=== PATIENT | male | born 1980 | race Caucasian/White ===

== ENCOUNTER 2024-01-10 01:16 | Emergency (ER) | payer BC, SELFPAY ==
[2024-01-10] VITALS (16 sets, daily range): BP systolic 121–176; BP diastolic 60–111; PULSE 69–89; RESP 16–20; TEMP 36.6; O2SAT 87–98; BMI 36.5
--- NOTE | 2024-01-10 01:35 | CTR_ITS ---
PROCEDURE INFORMATION: Exam: CT Abdomen And Pelvis Without Contrast Exam date and time: 01/10/2024 1:46 AM Age: 43 years old Clinical indication: Abdominal pain; Flank; Left; Prior surgery; Surgery date: 6+ months; Surgery type: Appy; Additional info: Kidney stone left TECHNIQUE: Imaging protocol: Computed tomography of the abdomen and pelvis without contrast. Radiation optimization: All CT scans at this facility use at least one of these dose optimization techniques: automated exposure control; mA and/or kV adjustment per patient size (includes targeted exams where dose is matched to clinical indication); or iterative reconstruction. COMPARISON: No relevant prior studies available. RADIATION DOSE METRICS: Total DLP (mGy-cm): 1336.93 FINDINGS: Lungs: Lung bases are clear as visualized. Diaphragm: There is a small hiatal hernia. Liver: There is diffuse fatty infiltration of the liver. The liver is otherwise normal. Gallbladder and biliary ducts: Normal. No calcified stones. No ductal dilation. Pancreas: Normal. No ductal dilation. Spleen: Normal. No splenomegaly. Adrenal glands: Normal. No mass. Kidneys and ureters: There are nonobstructing renal calculi on the left. There is moderate to severe hydronephrosis on the left secondary to 3 stones within the proximal left ureter the largest measures 12 mm in size. The 2nd largest measures 7 mm in size in the 3rd measures 1-2 mm in size. There is mild perinephric stranding on the left. The right kidney has a normal noncontrast appearance. Stomach and bowel: There are scattered colonic diverticula. No large bowel wall thickening is appreciated. No dilated loops of large or small bowel is appreciated. Appendix: The appendix is surgically absent. Intraperitoneal space: Unremarkable. No free air. No significant fluid collection. Vasculature: Unremarkable. No abdominal aortic aneurysm. Lymph nodes: Unremarkable. No enlarged lymph nodes. Urinary bladder: Unremarkable as visualized. Reproductive: Unremarkable as visualized. Bones/joints: Unremarkable. No acute fracture. Soft tissues: There is a small fat filled periumbilical hernia. CT/CT kidney stone [id number] IMPRESSION: 1. Moderate to severe hydronephrosis on the left secondary to a 3 proximal left ureteral stones. 2. Fatty infiltration of the liver. 3. Diverticulosis.
[2024-01-10] MEDS: ondansetron 2 mg/ML SDV 2 mL 4 MG IVP (01:42)
[2024-01-10 01:43] LABS: Charge for UA Resulting for Rev
[2024-01-10] MEDS: ketorolac 30 mg/mL INJ 15 MG IVP (01:43)
[2024-01-10 01:44] LABS: Basophils # 0.1 10^3/uL (0.0-0.1); Basophils % 0.7 %; Eosinophils # 0.4 10^3/uL (0.0-0.8); Eosinophils % 2.8 %; Hematocrit 40.3 % (37-53); Lymphocytes # 2.9 10^3/uL (0.8-4.8); Lymphocytes % 21.6 %; Mean Corpuscular HGB Conc 33.3 g/dL (30-55); Mean Corpuscular Hemoglobin 30.4 pg (27-33); Mean Corpuscular Volume 91.4 fl (82-101); Mean Platelet Volume 10.4 fL (7.4-10.4); Monocytes # 1.1 10^3/uL (0.2-0.9); Monocytes % 8.5 %; Nucleated Red Blood Cells % 0 %; Platelet Count 251 10^3/cmm (157-399); Red Blood Count 4.41 10^6/uL (3.85-5.65); Red Cell Distribution Width 13.3 % (12.1-15.1); White Blood Count 13.34 10^3/uL (3.29-11.43)
[2024-01-10 01:46] LABS: Bilirubin Urine Negative (Negative); Blood Urine Negative (Negative); Glucose Urine UA Negative (Normal); Ketones Urine Negative (Negative); Leukocyte Esterase Urine Negative (Negative); Nitrate Urine Negative (Negative); Protein Urine Negative (Negative); Specific Gravity, Urine 1.012 (1.005-1.030); Urine Appearance Clear (CLEAR); Urine Color Yellow (Yellow); pH Urine 6.5 (5-7)
[2024-01-10 01:48] LABS: Add Urine Culture? No
--- NOTE | 2024-01-10 01:51 | W.ED.ABDPA2 ---
HPI - Abdominal Pain General: Chief Complaint: Abdominal Pain Stated Complaint: sharp stabbing pain back Left flank n/v Time Seen by Provider: 01/10/24 01:30 History of Present Illness: 43-year-old male presents with left flank pain and left lower quadrant pain. He reports earlier today. He had some vomiting associated with it. Reports that he is concerned he may have a kidney stone. No fevers or chills reported. Associated Symptoms: Reports nausea and vomiting; Denies chills and fever(s) Review of Systems Const: Denies: fever(s) or chills Card: Denies: chest pain or palpitations Resp: Denies: dyspnea or productive cough GI: Reports: abdominal pain, nausea and vomiting : Reports: flank pain Skin/Breast: Denies: rash Neuro: Denies: headache(s) Physical Exam Const: COMMON NORMALS: patient oriented x3 NUTRITIONAL APPEARANCE: obese Resp: COMMON NORMALS: normal respiratory effort, No use of accessory muscles and clear to auscultation bilaterally AUSCULTATION: clear to auscultation bilaterally Cardio: COMMON NORMALS: regular rate and regular rhythm RATE: regular rate RHYTHM: regular rhythm Neuro: COMMON NORMALS: patient oriented x3, CN's II-XII intact bilaterally and no focal motor deficits Psych: COMMON NORMALS: mental status grossly normal, Normal thought process present and cooperative THOUGHT PROCESS: Normal thought process present Skin: COMMON NORMALS: no rashes or lesions noted GENERAL SKIN EXAM: no rashes or lesions noted Course Vital Signs: Vital signs: Vital Signs Temperature 98 F 01/10/24 01:25 Pulse Rate 69 01/10/24 04:30 Respiratory Rate 16 01/10/24 04:30 Blood Pressure 142/67 01/10/24 04:30 Pulse Oximetry 98 01/10/24 06:01 Oxygen Delivery Me thod Nasal Cannula 01/10/24 06:01 Oxygen Flow Rate 3 01/10/24 06:01 MDM - Abdominal Pain Medical Decision Making Patient with 3 kidney stones in the left proximal ureter with the largest being 12 mm. Patient does have some mild acute kidney injury and elevated white count. He was provided Rocephin in the ER. Patient be transferred to [facility] later during the day once a bed opens up. He has been accepted. Patient was stable upon transfer. Lab Data 01/10/24 01:35 01/10/24 01:35 Labs/Radiology: Radiology Impressions Abdomen/Pelvis CT 01/10/24 01:35 IMPRESSION: 1. Moderate to severe hydronephrosis on the left secondary to a 3 proximal left ureteral stones. 2. Fatty infiltration of the liver. 3. Diverticulosis. Laboratory Results WBC 13.34 10^3/uL (3.29-11.43) H 01/10/24 01:35 RBC 4.41 10^6/uL (3.85-5.65) 01/10/24 01:35 Hgb 13.40 g/dL (11.27-16.99) 01/10/24 01:35 Hct 40.3 % (37-53) 01/10/24 01:35 MCV 91.4 fl (82-101) 01/10/24 01:35 MCH 30.4 pg (27-33) 01/10/24 01:35 MCHC 33.3 g/dL (30-55) 01/10/24 01:35 RDW 13.3 % (12.1-15.1) 01/10/24 01:35 Plt Count 251 10^3/cmm (157-399) 01/10/24 01:35 MPV 10.4 fL (7.4-10.4) 01/10/24 01:35 Neut % (Auto) 66.0 % 01/10/24 01:35 Lymph % (Auto) 21.6 % 01/10/24 01:35 [place] % (Auto) 8.5 % 01/10/24 01:35 Eos % (Auto) 2.8 % 01/10/24 01:35 Baso % (Auto) 0.7 % 01/10/24 01:35 Neut # (Auto) 8.80 10^3/uL (1.8-7.7) H 01/10/24 01:35 Lymph # (Auto) 2.9 10^3/uL (0.8-4.8) 01/10/24 01:35 [place] # (Auto) 1.1 10^3/uL (0.2-0.9) H 01/10/24 01:35 Eos # (Auto) 0.4 10^3/uL (0.0-0.8) 01/10/24 01:35 Baso # (Auto) 0.1 10^3/uL (0.0-0.1) 01/10/24 01:35 Nucleated RBC % (auto) 0 % 01/10/24 01:35 Nucleated RBCs # 0.0 /100WBC 01/10/24 01:35 Sodium 139 mmol/L (136-145) 01/10/24 01:35 Potassium 4.1 mmol/L (3.5-5.1) 01/10/24 01:35 Chloride 103 mmol/L (98-107) 01/10/24 01:35 Carbon Dioxide 24 mmol/L (22-29) 01/10/24 01:35 Anion Gap 16.1 (5-19) 01/10/24 01:35 BUN 25 mg/dL (6-20) H 01/10/24 01:35 Creatinine 2.1 mg/dL (0.7-1.2) H 01/10/24 01:35 GFR Calculation 34.3 mL/min (90-130) L 01/10/24 01:35 Glucose 117 mg/dL (65-115) H 01/10/24 01:35 Calculated Osmolality 293 mOsm/kg (285-295) 01/10/24 01:35 Calcium 9.2 mg/dL (8.5-10.5) 01/10/24 01:35 Urine Color Yellow (Yellow) 01/10/24 01:35 Urine Appearance Clear (CLEAR) 01/10/24 01:35 Urine pH 6.5 (5-7) 01/10/24 01:35 Ur Specific Polk 1.012 (1.005-1.030) 01/10/24 01:35 Urine Protein Negative (Negative) 01/10/24 01:35 Urine Glucose (UA) Negative (Normal) 01/10/24 01:35 Urine Ketones Negative (Negative) 01/10/24 01:35 Urine Blood Negative (Negative) 01/10/24 01:35 Urine Nitrate Negative (Negative) 01/10/24 01:35 Urine Bilirubin Negative (Negative) 01/10/24 01:35 Urine Urobilinogen 1.0 mg/dL (Negative) 01/10/24 01:35 Ur Leukocyte Esterase Negative (Negative) 01/10/24 01:35 Amorphous Sediment Not Reportable 01/10/24 01:35 All radiology interpretation(s) finalized by discharge Discharge Plan Discharge Patient Disposition: Xfer Short-Term Hosp Clinical Impression: Calculus of proximal left ureter, Acute kidney injury Condition: Stable Referrals: Yun Sadler APN [Primary Care Provider] - Coding Level of Care Code ED Physical Security Engineer for Maria A Nunes
[2024-01-10 01:59] LABS: Anion Gap 16.1 (5-19); Blood Urea Nitrogen 25 mg/dL (6-20); Calcium 9.2 mg/dL (8.5-10.5); Carbon Dioxide 24 mmol/L (22-29); Chloride 103 mmol/L (98-107); Creatinine Clr Calc Pharmacy 66.9217; Glomerular Filtration Rate 34.3 mL/min (90-130); Glucose 117 mg/dL (65-115); Osmolality Calculated 293 mOsm/kg (285-295); Potassium 4.1 mmol/L (3.5-5.1); Sodium 139 mmol/L (136-145)
[2024-01-10] MEDS: sodium chloride 0.9% 1,000 ML 100 ML IV ×2 (02:55→12:45)
[2024-01-10] MEDS: cefTRIAXone 1,000 mg SDV 1000 MG IVP (02:55)
== END 2024-01-10 13:11 | disposition short-term general hospital (02) ==
PROVIDERS: Emergency Provider Student in an Organized Health Care Education/Training Program; PCP Nurse Practitioner Family
DX: N13.2 Hydronephrosis with renal and ureteral calculous obstruction (principal); N17.9 Acute kidney failure, unspecified
CPT/HCPCS: 74176; 80048; 81003; 81015; 85025; 96374; 96375; 99285; J0696; J1885; J2405; J7030

== ENCOUNTER → 2025-05-05 09:59 | Outpatient (BNVA) | payer OTHER, SELFPAY | PROVIDERS: PCP Nurse Practitioner Family; Visit Provider Nurse Practitioner | DX: R05.9 Cough, unspecified (principal) | CPT/HCPCS: 87400; 87426 ==

== ENCOUNTER 2025-05-08 15:11 | Emergency (ER) | payer OTHER, SELFPAY ==
--- OUTSIDE RECORDS SUMMARY | 2024-08-11 07:40 | XMS_ITS ---
Author Organization [facility] Address [address] [place] [address] Care Team Providers Care Masking Machine Operator Name Role Phone Yun Sadler Primary Care Provider [phone] Raissa Gonzalez Unavailable [phone] YUN SADLER Unavailable Unavailable REASON FOR VISIT LT SHOULDER Encounters Encounter Location Date Provider Diagnosis [facility] [address] [place] [phone] 08/11/2024 Raissa Gonzalez Plan Of Treatment No Information Progress Notes * Eric ALMAGUERDOB:1980 (44 yo M)Acc No.[id number]:08/11/2024 Progress Notes Patient: Eric Rivera Provider: Sonido Gonzalez MD :1980 A ge:43 Y S ex:Male Date:08/11/2024 Address:[address] [place], [place] [phone] Pcp:Yun Sadler Subjective: * Chief Complaints: * L T SHOULDER * Electronic signature of Zohra in MD Carlos on 05/08/2025 at 03:16 PM DIESEL ENGINE I PIPE FITTER Sign off status: Pending * Provider: Sonido Gonzalez MD Date: 0 08/11/2024 Generated for Monchoi ng/Faxing/eTransmitting on: 1 07/08/2024 03:16 PM DIESEL ENGINE I PIPE FITTER
--- OUTSIDE RECORDS SUMMARY | 2024-08-18 08:20 | XMS_ITS ---
Author Organization [facility] Address [address] [place] [address] Care Team Providers Care Legal Stenographer Name Role Phone Yun Sadler Primary Care Provider Raissa Gonzalez Unavailable [phone] YUN SADLER Unavailable Unavailable REASON FOR VISIT LT SHOULDER Encounters Encounter Location Date Provider Diagnosis [facility] [address] [place] [phone] 08/18/2024 Raissa Gonzalez Plan Of Treatment No Information Progress Notes * Eric ALMAGUERDOB:1980 (44 yo M)Acc No.[id number]:08/18/2024 Progress Notes Patient: Eric Rivera Provider: Sonido Gonzalez MD :1980 A ge:43 Y S ex:Male Date:08/18/2024 Address:[address] [place], [place] [phone] Pcp:Yun Sadler Subjective: * Chief Complaints: * L T SHOULDER * Electronic signature of Zohra in MD Carlos on 05/08/2025 at 03:16 PM FLOOR SPECIALIST Sign off status: Pending * Provider: Sonido Gonzalez MD Date: 0 08/18/2024 Generated for Monchoi ng/Faxing/eTransmitting on: 1 07/08/2024 03:16 PM FLOOR SPECIALIST
--- NOTE | 2025-05-08 15:12 | XRR_ITS ---
PROCEDURE INFORMATION: Exam: XR Chest Exam date and time: 05/08/2025 3:14 PM Age: 44 years old Clinical indication: Shortness of breath; Additional info: SOB TECHNIQUE: Imaging protocol: Radiologic exam of the chest. Views: 1 view. COMPARISON: CT kidney stone [id number] 01/10/2024 1:46 AM FINDINGS: Lungs: Unremarkable. No consolidation. Pleural spaces: Unremarkable. No pleural effusion. No pneumothorax. Heart/Mediastinum: Unremarkable. No cardiomegaly. Bones/joints: Unremarkable. XR/XR chest 1V portable [id number] IMPRESSION: No acute findings.
[2025-05-08 15:16] VITALS: BP 122/92; PULSE 84; RESP 18; TEMP 36.6; O2SAT 94
--- OUTSIDE RECORDS SUMMARY | 2025-05-08 15:16 | XMS_ITS | Patient Health Record ---
Author Organization [facility] Address [address] [place] [address] Care Team Providers Care Warehouse Order Picker Name Role Phone Yun Sadler Primary Care Provider JOI Lowe Unavailable [phone] Allergies Allergen (clinical drug ingredient) Drug/Non Drug Allergy documented on EMR Reaction Allergy Type Onset Date Status Information temporarily unavailable Sulfa Antibiotics Unknown Drug Allergy Active Reason For Referral No Information Medications Medication SIG (Take, Route, Fr equency, Duration) Notes Start Date End Date Status Tamsulosin HCl 0.4 MG Take 1 capsule by mouth once daily; Duration: 90 days Active DULoxetine HCl 60 MG Take 1 capsule by m outh once daily; Duration: 90 Active lamoTRIgine ER 200 MG 1 tablet Orally On ce a day; Duration: 90 days Active Allopurinol 300 MG 1 tablet Orally Once a day Active Colchicine 0.6 MG Take 1 tablet by heaven th once daily for 90 days; Duration: 90 Active Lisinopril 40 MG Take 1 tablet by heaven th once daily; Duration: 90 Active Problems Problem Type SNOMED Code ICD Code Onset Dates Problem Status W/U Status Risk Notes Problem Information temporarily unavailable Urge incontinence (N39.41) Active confirmed Problem Information temporarily unavailable Sinusitis (J32.9) Active confirmed Problem Information temporarily unavailable 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 Problem Information temporarily unavailable Hypertension, unspecified type (I10) Active confirmed Problem Information temporarily unavailable Hypersomnia (G47.10) Active confirmed Problem Information temporarily unavailable SHAWNA (obstructive sleep apnea) (G47.33) Active confirmed Plan Of Treatment No Information Insurance Providers Payer Name Payer Address Payer Phone Subscriber Number Group Number Insured Name Patient Relationship to Insured Coverage Start Date Coverage End Date [place] [address] [place] [id number] Eric Cordero Self - patient is the insured Medical (General) History Medical History History ICD Code hypertension Gout Surgical History Surgery Date(Month/Year) left knee surgery
--- OUTSIDE RECORDS SUMMARY | 2025-05-08 15:16 | XMS_ITS | Patient Health Record ---
Author Organization [facility] Address [address] [place] [address] Care Team Providers Care Singe Machine Operator Name Role Phone Yun Sadler Primary Care Provider [phone] Raissa Gonzalez Unavailable [phone] YUN SADLER Unavailable Unavailable Allergies Allergen (clinical drug ingredient) Drug/Non Drug Allergy documented on EMR Reaction Allergy Type Onset Date Status Information temporarily unavailable Sulfa Antibiotics Unknown Drug Allergy Active Results Component Value Reference Range Notes Shoulder Min 3V Left-[id number] Reviewed date:09/21/2024 11:10:09 AM Interpretation: Performing Lab: Notes/Report: [id number]=iSite IH Shoulder Min 3V Left - 73 030 Reviewed date:09/21/2024 11:10:01 AM Interpretation: Performing Lab: Notes/Report: The report for this exam was dictated at [facility] . FINAL REPORT Diagnosis Description: Pain in left shoulder Reason For Referral Reason Left shoulder pain Diagnosis 1 Shoulder pain, left (M25.512) Referral Organization [facility] Referring Provider First Name Yun Referring Provider Last Name Viktoriya Referring Provider Speciality Nurse Prac titioner Referred Organization [facility] Referred Provider Raissa Gonzalez Referred Address [address],[place],[address],[place] Referred Provider Specialty Orthopedic S urgery Referral Priority Routine Referral Appointment Date 08/11/2024 Reason NCV/EMG , Bilateral paresthesia/anesthesia of Hands Diagnosis 1 Anesthesia (R20.0) Diagnosis 2 Paresthesia (R20.2) Referring Provider First Name Raissa Referring Provider Last Name Carlos Referring Provider Speciality Orthopedic Surgery Referred Organization 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) Referral Organization [facility] Referring Provider First Name Raissa Referring Provider Last Name Carlos Referring Provider Speciality Orthopedic Surgery Referred Provider [facility] Referred Provider Specialty Physical The rapist General Notes Jesús Ro 025 03:57:41 PM >PT eval 09/29/24 Referral Priority Routine Reason NCV/EMG Bilateral paresthesia/anesthesia of Hands Diagnosis 1 Paresthesia (R20.2) Diagnosis 2 Anesthesia (R20.0) Referral Organization [facility] Referring Provider First Name Raissa Referring Provider Last Theodore Gonzalez Referring Provider Speciality Orthopedic Surgery Referred Provider Sonido Garvin Referral Priority Routine Medications Medication SIG (Take, Route, Frequency, Duration) Notes Start Date End Date Status Albuterol Sulfate HFA 108 (90 Base) MCG/ACT Aerosol Solution 1 puff as needed Inhalation every 4 hrs 02/04/2024 Active predniSONE 20 MG Tablet 2 tablets Orally Once a day; Duration: 7 days 02/04/2024 Active lamoTRIgine ER 200 MG Tablet Extended Release 24 Hour Take 1 tablet by mouth once daily; Duration: 90 days Active Diclofenac Sodium 75 MG Tablet Delayed Release Take 1 tablet by mouth twice daily as needed; Duration: 30 Active Oseltamivir Phosphate 75 MG Capsule 1 capsule Orally Twice a day; Duration: 5 days 07/20/2024 Active Lisinopril 40 MG Tablet Take 1 tablet by mouth once daily; Duration: 90 days Active Zithromax 250 MG Tablet Z pack as directed Orally 02/03/2024 Active Tamsulosin HCl 0.4 MG Capsule 1 capsule Orally Once a day; Duration: 90 days Active DULoxetine HCl 60 MG Capsule Delayed Release Particles Take 1 capsule by mouth once daily; Duration: 90 days Active Social History Tobacco Use: Social History Observation Description Date Details (start date - stop date) Current Smoker NA - NA Social History Depression Screening Social Info Question Answer Notes PHQ-9 Little interest or pleasure in doing thin gs Not at all Feeling down, depressed, or hopeless Not at all Trouble falling or staying asleep, or sleeping t oo much Not at all Feeling tired or having little energy Not at all Poor appetite or overeating Not at all Feeling bad about yourself, or that you are a failure, or have let yourself or your family down Not at all Trouble concentrating on thi ngs, such as reading the newspaper or watching television Not at all Moving or speaking so slowly that other people could have noticed. Or the opposite ? being so fidgety or restless that you have been moving around a lot more than usual Not at all Thoughts that you would be b julio off , or of hurting yourself in some way Not at all Total Score 0 Drugs/Alcohol: Social Info Question Answer Notes Alcohol Screen (Audit-C) Did you have a drink containing alcohol in the past year? No Points 0 Interpretation Negative Tobacco Use: Social Info Question Answer Notes xTobacco Use/Smoking Are you a current smoker How often do you smoke cigarettes? some days, but not every day Additional Findings: Tobacco User Chews fine cut tobacco Section Notes: 04/09/22 PHQ9 05/20/23 PHQ9 04/09/22 PHQ9 04/09/22 PHQ9 04/09/22 PHQ9 04/09/22 PHQ9 04/09/22 PHQ9 05/20/23 PHQ9 04/09/22 PHQ9 05/20/23 PHQ9 04/09/22 PHQ9 05/20/23 PHQ9 04/09/22 PHQ9 05/20/23 PHQ9 07/20/24 PHQ9 Alcohol active 04/09/22 PHQ9 05/20/23 PHQ9 07/20/24 PHQ9 04/09/22 PHQ9 05/20/23 PHQ9 04/09/22 PHQ9 Problems Problem Type SNOMED Code ICD Code Onset Dates Problem Status W/U Status Risk Notes Problem Information temporarily unavailable Primary osteoarthritis, left shoulder (M19.012) Active confirmed Problem Information temporarily unavailable Impingement syndrome of left shoulder (M75.42) Active confirmed Problem Information temporarily unavailable Urge incontinence (N39.41) Active confirmed Problem Information temporarily unavailable Hypertension, unspecified type (I10) Active confirmed Problem Information temporarily unavailable Hypersomnia (G47.10) Active confirmed Problem Information temporarily unavailable Sinusitis (J32.9) Active confirmed Problem Information temporarily unavailable SHAWNA (obstructive sleep apnea) (G47.33) Active confirmed Problem Information temporarily unavailable Paresthesia (R20.2) Active confirmed Problem Information temporarily unavailable 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 Vital Signs Heart Rate 88 /min 09/15/2024 Temperature 97.2 degrees Fahrenheit 07/20/2024 Respiratory Rate 20 /min 07/20/2024 Height-cm 187.96 cm 09/15/2024 Oximetry 97 % 09/15/2024 Blood pressure diastolic 74 mm Hg 09/15/2024 Weight-kg 145.2 kg 09/15/2024 Height 74 in 09/15/2024 Blood pressure systolic 136 mm Hg 09/15/2024 Weight 320.11 lbs 09/15/2024 BMI 41.1 kg/m2 09/15/2024 Encounters Encounter Location Date Provider Diagnosis [facility] [address] [phone] 07/20/2024 Yun Sadler Influenza A J10.1 ; Body aches R52 ; Shoulder pain, left M25.512 and Depression screen Z13.31 [facility] [address] [place] [phone] 09/15/2024 Furley Gonzalez Impingement syndrome of left shoulder M75.42 ; Primary osteoarthritis, left shoulder M19.012 and Paresthesia R20.2 [facility] [address] [facility] [address] [place] [address] 04/29/2025 Yun Sadler Strep pharyngitis J02.0 Assessments Encounter Date Diagnosis (ICD Code) Assessment Notes Treatment Notes Treatment Clinical Notes Section Notes 04/29/2025 Strep pharyngitis (ICD-10 - J02.0) 07/20/2024 Body aches (ICD-10 - R52) Toradol injection given. 07/20/2024 Influenza A (ICD-10 - J10.1) Increase fluids, take medication as directed. RTC if no improvement with treatment. 09/15/2024 Primary osteoarthritis, left shoulder (ICD-10 - M19.012) Upon review of shoulder xray in clinic today; Pt is to attend at least initial physical therapy consult to develop home exercise plan. PT given linnette w/ instructions to work on regaining motion until visit. He is to begin diclofenac 75 mg BID, stay hydrated, avoid other NSAIDs, and a Referral for NCV/EMG to be sent. 09/15/2024 Impingement syndrome of left shoulder (ICD-10 - M75.42) Upon review of shoulder xray in clinic today; Pt is to attend at least initial physical therapy consult to develop home exercise plan. PT given linnette w/ instructions to work on regaining motion until visit. He is to begin diclofenac 75 mg BID, stay hydrated, avoid other NSAIDs, and a Referral for NCV/EMG to be sent. 09/15/2024 Paresthesia (ICD-10 - R20.2) Upon review of shoulder xray in clinic today; Pt is to attend at least initial physical therapy consult to develop home exercise plan. PT given linnette w/ instructions to work on regaining motion until visit. He is to begin diclofenac 75 mg BID, stay hydrated, avoid other NSAIDs, and a Referral for NCV/EMG to be sent. 07/20/2024 Shoulder pain, left (ICD-10 - M25.512) 07/20/2024 Depression screen (ICD-10 - Z13.31) Plan Of Treatment No Information Insurance Providers Payer Name Payer Address Payer Phone Subscriber Number Group Number Insured Name Patient Relationship to Insured Coverage Start Date Coverage End Date [employer] [place] [employer] [address] [place] [address] [id number] Eric Hart Self - patient is the insured Medications Administered Medication Instructions Date of Administration Dosage Notes DEPO-Medrol 07/26/2023 40 mg [facility] [id number] 3-01 pt tolerated well/instructed to wait 20 min dexAMETHasone 06/20/2022 8 mg [facility]- [id number] Patient tolerated well dexAMETHasone 10/02/2022 8 mg [facility]-44024-7 423-00 Patient tolerated well. dexAMETHasone 07/26/2023 4 mg [facility] 94237-7 423-00 pt tolerated well/instructed to wait 20 min Ketorolac Tromethamine 08/20/2023 60 mg nd [id number] Patient tolerated well. Ketorolac Tromethamine 10/10/2023 60 mg nd [id number] Patient tolerated well. Ketorolac Tromethamine 02/03/2024 60 mg nd [id number] Patient tolerated well. Ketorolac Tromethamine 07/20/2024 60 mg nd [id number] Patient tolerated well. Rocephin 02/04/2024 1 g [id number] Patient tolerated well. Medical (General) History Medical History History ICD Code hypertension Gout pneumonia hemorrhoids Surgical History Surgery Date(Month/Year) left knee surgery T+A UP3 appendix removed kidney stones removed urethra surgery
--- NOTE | 2025-05-08 15:20 | W.ED.GENADLT ---
HPI - General Adult General: Chief complaint: Upper Respiratory Infection Stated complaint: SOB, sinus pressure, dry cough Time Seen by Provider: 05/08/25 15:12 Source: patient Mode of arrival: ambulatory Limitations: no limitations History of Present Illness: 44-year-old male states that over the last week he has not had a cough congestion sinus pressure. States its been a dry cough but has been having some slight shortness of breath. Denies any fevers states he had seen his PCP along with urgent care and was been on prednisone. Has had a history of pneumonia in the past. Smokes occasionally Related Data Home Medications ?Medication ?Instructions ?Recorded ?Confirmed diclofenac sodium 75 mg 75 mg PO BID PRN INFLAMMATION AND 01/10/24 05/05/25 tablet,delayed release PAIN. lisinopril 40 mg tablet 40 mg PO QPM 01/10/24 05/05/25 Previous Rx's ?Medication ?Instructions ?Recorded prednisone 20 mg tablet 20 mg PO DAILY 5 days #5 tabs 05/05/25 cephalexin 500 mg capsule 500 mg PO TID 7 days #21 caps 05/08/25 Allergies Allergy/AdvReac Type Severity Reaction Status Date / Time Sulfa (Sulfonamide Allergy Intermediate Unknown Verified 05/08/25 15:21 Antibiotics) PFS ED PFSH: Social History Smoking and tobacco/nicotine status: former use of tobacco/nicotine Physical Exam Const: COMMON NORMALS: no acute distress, patient oriented x3 and healthy appearing HENMT: COMMON NORMALS: normocephalic and atraumatic HEAD & SCALP: normocephalic and atraumatic Neck/C-Spine: COMMON NORMALS: full ROM and supple Chest: COMMONS NORMALS: normal inspection of the chest Resp: COMMON NORMALS: normal respiratory effort, No retractions, No use of accessory muscles and clear to auscultation bilaterally AUSCULTATION: clear to auscultation bilaterally Cardio: COMMON NORMALS: regular rate, regular rhythm and No murmurs present (Cardio) RATE: regular rate RHYTHM: regular rhythm Extremity: COMMON NORMALS: normal to inspection and full ROM Neuro: COMMON NORMALS: patient oriented x3, moves all extremities and no focal motor deficits Psych: COMMON NORMALS: mental status grossly normal, Normal thought process present and cooperative THOUGHT PROCESS: Normal thought process present Skin: COMMON NORMALS: no rashes or lesions noted and no wounds GENERAL SKIN EXAM: no rashes or lesions noted Course Vital Signs: Vital signs: Vital Signs Temperature 97.8 F 05/08/25 15:16 Pulse Rate 87 05/08/25 16:17 Respiratory Rate 17 05/08/25 16:04 Blood Pressure 120/79 05/08/25 16:17 Pulse Oximetry 94 05/08/25 16:17 Oxygen Delivery Me thod Room Air 05/08/25 16:04 MDM - General Adult Medical Decision Making Patient presents here with cough congestion differential includes upper Rester infection, pneumonia. Chest x-ray here showed no definite pneumonia has had ongoing symptoms productive cough he is already on steroids. Will start him on Keflex he is to follow-up with PCP and return if worsening he understands agrees to plan. EKG time 1532 normal sinus rhythm heart rate [address] elevation QRS 97 QTc 399 Medical Records I reviewed the patient's medical records. Lab Data Radiology Impressions Chest X-Ray 05/08/25 15:12 IMPRESSION: No acute findings. All radiology interpretation(s) finalized by discharge Discharge Plan Discharge Patient Disposition: Home Clinical Impression: Upper respiratory infection Condition: Stable Prescriptions: New cephalexin 500 mg capsule 500 mg PO TID 7 Days Qty: 21 0RF No Action prednisone 20 mg tablet 20 mg PO DAILY 5 Days Qty: 5 0RF diclofenac sodium 75 mg tablet,delayed release (DR/EC) 75 mg PO BID PRN (Reason: INFLAMMATION AND PAIN.) lisinopril 40 mg tablet 40 mg PO QPM Discharge Orders: Discharge ED (Routine); Ordered 05/08/25 Ordered By: Brandt Rangel Referrals: Yun Sadler APN [Primary Care Provider, Family Practice] - 4-7 days Discharge Diet: Advance as tolerated Discharge Activity: Resume usual activity Patient Instructions: Upper Respiratory Infection (ED) Print Language: Finnish Coding Level of Care Code ED Stave Hewer for Maria A Nunes
[2025-05-08 15:30] VITALS: BP 122/92; PULSE 84; O2SAT 94
--- NOTE | 2025-05-08 15:32 | ECG_ITS ---
[facility] Test Date: 2025-05-08 Pat Name: Eric Garcia Department: Room: Gender: Male Unarmed [employer]: : 1980 Requested By: Brandt Rangel Order Number: [id number] Mallory MD: Rayo Lopez M.D. Measurements Intervals [place] Rate: 73 P: 42 NE: 152 QRS: 35 QRSD: 97 T: 25 QT: 373 QTc: 413 Interpretive Statements SINUS RHYTHM No previous ECG available for comparison Electronically Signed On 05-08-2025 15:35:53 [employer]PER[employer] by Rayo Lopez M.D. [email or web address]
[2025-05-08 16:04] VITALS: PULSE 70; RESP 17; O2SAT 93
[2025-05-08] MEDS: cefTRIAXone 1,000 MG in water for injection-sterile 2.1 ML 1 MG IM (16:04)
[2025-05-08 16:17] VITALS: BP 120/79; PULSE 87; O2SAT 94
== END 2025-05-08 16:18 | disposition home or self-care (01) ==
PROVIDERS: Emergency Provider Emergency Medicine; PCP Nurse Practitioner Family
DX: J06.9 Acute upper respiratory infection, unspecified (principal); Z87.891 Personal history of nicotine dependence
CPT/HCPCS: 71045; 93005; 94640; 96372; 99284; J0696; J9999